=== PATIENT | female | born 1965 | race Two or more races ===

== ENCOUNTER 2024-04-06 16:43 | Emergency (ER) | payer OTHER ==
[~2024-04-06] VITALS: Ht 167.6 cm; Wt 126.1 kg
[2024-04-06] MEDS ORDERED: TAMSULOSIN HCL 0.4 MG CAP PO ONE (18:45)
[2024-04-06] MEDS ORDERED: CEFTRIAXONE SODIUM 1,000 MG VIAL IV ONE (18:45)
[2024-04-06] MEDS ORDERED: KETOROLAC TROMETHAMINE 60 MG VIAL IM ONE (18:45)
[2024-04-06 19:04] LABS: HEMATOCRIT 39.3 % (36.0-45.00); MEAN CELL VOLUME 88.9 fL (80.00-100.00); MEAN CORPUSCULAR HEMOGLOBIN 29.4 pg (27.00-32.0); MEAN CORPUSCULAR HGB CONC 33.1 g/dl (32.0-36.0); PLATELET COUNT 217 K/uL (150-450); RED BLOOD COUNT 4.42 M/uL (4.00-6.00); RED CELL DISTRIBUTION WIDTH 13.8 % (11.5-14.5)
[2024-04-06 19:21] LABS: PH,URINE 5.5 (5.0-8.0); URINE APPEARANCE Cloudy; URINE BILIRRUBIN Small (NEGATIVE); URINE BLOOD Large; URINE COLOR Orange; URINE GLUCOSE Negative (NEGATIVE); URINE KETONE Trace (NEGATIVE); URINE LEUKOCYTE Large; URINE NITRATE Positive
[2024-04-06 19:22] LABS: URINE BACTERIA 5074.3 uL (0.0-1933); URINE CAST 1.47 uL (0.0-1.40); URINE EPITHELIAL CELLS 29.4 uL (0.0-38.8); URINE RBC 159.5 uL (0.0-20.8)
[2024-04-06 19:24] LABS: ALBUMIN 3.6 gm/dL (3.4-5.0); BILIRUBIN TOTAL 0.51 mg/dL (0.3-1.2); CALCIUM 9.6 mg/dL (8.5-10.1); CREATININE SERUM 0.69 mg/dL (0.55-1.02); GFR 87.69; GLOBULINA 4.1 G/DL (2.4-3.5); POTASSIUM 4.29 mEq/L (3.5-5.1); TOTAL PROTEIN 7.7 gm/dL (6.4-8.2)
[2024-04-06 19:52] LABS: URINE PROTEIN 100 (NEGATIVE)
[2024-04-06] MEDS ORDERED: PEPCID AC20 MG PO (23:29)
[2024-04-06] MEDS ORDERED: BACTRIM DS TAB1 EACH PO (23:29)
[2024-04-06] MEDS ORDERED: TAMS0.4C PO (23:29)
[2024-04-06] MEDS ORDERED: KETO10TA2 PO (23:29)
== END 2024-04-07 00:11 | disposition home or self-care (01) ==
LOC: ER 16:45
PROVIDERS: General Practice
DX: R10.9 Unspecified abdominal pain (principal); Z91.018 Allergy to other foods
CPT/HCPCS: 36415; 74177; Q9965